=== PATIENT | male | born 1960 | race Caucasian/White ===

== ENCOUNTER 2020-07-23 07:33 | Emergency (ER) | payer BC, SELFPAY ==
--- NOTE | ~2020-07-23 | CT_ITS ---
EXAMINATION: CT cervical spine wo con DATE: 07/23/2020 08:31 INDICATION: Nontraumatic neck pain TECHNIQUE: Computed tomography (CT) of the cervical spine was performed without intravenous contrast. Automated exposure control and iterative reconstruction technique were employed. The dose-length pro duct was 200.80 mGy-cm. COMPARISON: None FINDINGS: Lower cervical levocurvature. Sagittal alignment is normal. Vertebral body heights are normal. No fra cture. There is osseous fusion across the right C2-C3 facet joint. Severe disc height loss with scler otic Modic type III degenerative endplate changes at C4-C5 through C6-C7. Moderate disc height loss a t C3-C4 and mild disc height loss at C2-C3. Small amount of atherosclerotic desiccation at the right carotid bulb. Dystrophic calcification is at the bilateral palatine tonsils. Mild emphysema at the ap ices of the lungs. The following disc levels are specifically discussed: C2-C3: The disc does not extend beyond the endplate margin. There is mild left and minimal right unco vertebral joint osteoarthritis. There is mild left facet joint osteoarthritis. The right facet joint is fused. There is no neural foraminal stenosis. There is no central canal stenosis. C3-C4: Disc is mildly bulging. There is mild to moderate left and severe right uncovertebral joint os teoarthritis. There is mild bilateral facet joint osteoarthritis. There is mild to moderate right and minimal left neural foraminal stenosis. There is mild central canal stenosis. C4-C5: Dysuria disc osteophyte complex. There is moderate left and severe right uncovertebral joint o steoarthritis. There is mild left and moderate right facet joint osteoarthritis. There is moderate ri ght and mild to moderate left neural foraminal stenosis. There is mild to moderate central canal sten osis. C5-C6: Posterior disc osteophyte complex. There is severe bilateral uncovertebral joint osteoarthriti s. There is mild left and moderate right facet joint osteoarthritis. There is moderate bilateral neur al foraminal stenosis. There is mild to moderate central canal stenosis. C6-C7: Posterior disc osteophyte complex. There is severe bilateral uncovertebral joint osteoarthriti s. There is mild left and moderate right facet joint osteoarthritis. There is mild to moderate bilate ral neural foraminal stenosis. There is mild central canal stenosis. C7-T1: Disc is bulging. There is no uncovertebral joint osteoarthritis. There is altered left and sev ere right facet joint osteoarthritis. There is mild right neural foraminal stenosis. There is mild ce ntral canal stenosis. IMPRESSION: 1. Severe cervical spondylosis. No acute osseous abnormality. 2. Mild emphysema. Reviewed, dictated and finalized at location A.
[2020-07-23 07:37] VITALS: BP 115/77; PULSE 116; RESP 20; TEMP 36.6; O2SAT 97
--- NOTE | 2020-07-23 07:59 | ED.NECK ---
HPI - Neck Pain/Injury General Chief Complaint: Neck Pain/Injury Stated Complaint: Neck pain since Friday Time Seen by Provider: 07/23/20 07:48 Source: patient Mode of arrival: ambulatory Limitations: no limitations History of Present Illness HPI Narrative: Patient is a 49-year-old male complaining of right sided neck pain, 9 out of 10, dull aching, nonradiating, worse with movement and palpation started approximately 3 days ago. Patient states that he was working in his shed moving and lifting things when he felt some pain Friday. Patient denies any headache, dizziness, weakness, numbness, incontinence or fever. Related Data Allergies Allergy/AdvReac Type Severity Reaction Status Date / Time No Known Allergies Allergy Mild Verified 07/23/20 07:38 Review of Systems Review of Systems: All systems reviewed & are unremarkable except as noted in HPI and below Constitutional: Constitutional: Denies body ache(s), Denies chills, Denies excessive sweating, Denies fatigue, Denies fever(s), Denies headache(s), Denies lethargy, Denies malaise, Denies weakness and Denies weight loss Eyes: Eyes: Denies blurry vision, Denies change in vision and Denies loss of vision ENT: Denies dizziness, Denies ear discharge, Denies headache(s), Denies lip swelling, Denies epistaxis, Denies nasal congestion, Denies throat swelling and Denies tongue swelling Cardiovascular: Cardiovascular: Denies chest pain, Denies chest pain at rest, Denies chest pain with activity, Denies diaphoresis, Denies rapid heart rate, Denies edema, Denies irregular heart rhythm, Denies lightheadedness, Denies palpitations, Denies dyspnea and Denies dyspnea on exertion Respiratory: Respiratory: Denies chest congestion, Denies cough, Denies hemoptysis, Denies dyspnea and Denies dyspnea on exertion Gastrointestinal: Gastrointestinal: Denies abdominal pain, Denies melena, Denies hematochezia, Denies diarrhea, Denies nausea, Denies vomiting and Denies hematemesis Musculoskeletal: Musculoskeletal: Denies abnormal gait, Denies deformity, Denies joint swelling, Denies limited range of motion, Denies neck pain and Denies numbness Neurologic: Denies Abnormal speech present, Denies abnormal gait, Denies confusion, Denies dizziness, Denies headache(s), Denies focal weakness, Denies loss of vision, Denies numbness, Denies Other visual disturbances, Denies Sensory deficit (Neuro) and Denies weakness Psychiatric: Psychiatric: Denies confusion, Denies depression, Denies auditory hallucinations, Denies homicidal ideation and Denies suicidal ideation Endocrine: Endocrine: Denies cold intolerance, Denies excessive sweating, Denies fatigue, Denies heat intolerance and Denies palpitations Hematologic/Lymphatic: Hematologic/Lymphatic: Denies easy bleeding and Denies easy bruising Allergic/Immunologic: Allergic/Immunologic: Denies lip swelling, Denies throat swelling and Denies tongue swelling Exam Const: General: cooperative, healthy appearing, comfortable, no acute distress, well developed, alert and awake; No confusion Orientation/consciousness: oriented to person, oriented to place, oriented to time, patient oriented x3 and No confusion Limitations: no limitations HENMT: Head: normal to inspection, normocephalic and atraumatic Ears: hearing grossly normal bilaterally, TM normal on the right and TM normal on the left General nose exam: Normal external nose present, Normal nares present and No nasal discharge present Face and sinus: normal facial exam Mouth: Yes Normal oral and palatal mucosa present, Yes lip normal, Yes tongue normal and Yes oropharynx normal Throat: posterior oropharynx normal, tonsils normal and uvula midline Eyes: General: appearance normal, both eyes and all related structures Pupils: Equal, round and reactive pupils present EOM: EOMs intact bilaterally Neck: Neck: normal visual inspection, no lymphadenopathy, no meningeal signs and no lymphadenopathy noted Carotids: normal sheets
[2020-07-23] MEDS: KETOROLAC (*BKC) 60 MG/2 ML VIAL 30 MG IM (08:10)
[2020-07-23] MEDS: HYDROcodone/acetaminophen (*CRX) 5-325 MG TABLET 1 TAB PO (08:10)
[2020-07-23] MEDS: diazePAM INJ (*CRX) 10 MG/2 ML SYRINGE 5 MG IM (08:19)
[2020-07-23] MEDS: predniSONE 20 MG TABLET 60 MG (08:21)
== END 2020-07-23 11:11 | disposition home or self-care (01) ==
PROVIDERS: Emergency Provider Emergency Medicine; PCP Physician Assistant
DX: S16.1XXA Strain of muscle, fascia and tendon at neck level, initial encounter (principal); X50.9XXA Other and unspecified overexertion or strenuous movements or postures, initial encounter
CPT/HCPCS: 72125; 96372; 99284; A9270; J1885; J3360; J7512

== ENCOUNTER 2020-07-25 12:04 | Observation (INO) | payer BC, SELFPAY ==
[2020-07-25] VITALS (10 sets, daily range): BP systolic 104–136; BP diastolic 78–91; PULSE 52–83; RESP 14–18; TEMP 36.2–36.8; O2SAT 97–100
--- NOTE | ~2020-07-25 | CT_ITS ---
EXAMINATION: CT brain wo con DATE: 07/25/2020 14:02 INDICATION: Slurred speech. Right-sided headache. TECHNIQUE: Computed tomography (CT) of the head was performed without intravenous contrast. The mA wa s adjusted according to patient size. Iterative reconstruction technique was employed. The dose-lengt h product was 605.33 mGy-cm. COMPARISON: None FINDINGS: There is no intracranial hemorrhage, acute infarction, or abnormal intracranial mass lesion . The ventricles are normal in size. The orbits are normal. There is mild mucosal thickening in the e thmoid sinuses. The mastoid air cells are normal. IMPRESSION: 1. Normal brain. Reviewed, dictated and finalized at location A. IMPRESSION: 1. Normal brain.
--- NOTE | ~2020-07-25 | CT_ITS ---
EXAMINATION: CTA brain carotid DATE: 07/25/2020 17:29 INDICATION: Dysarthria. TECHNIQUE: Computed tomographic angiography (CTA) of the head was performed with 100 mL Omnipaque-350 intravenous contrast. CTA of the neck was performed with intravenous contrast. Automated exposure co ntrol and iterative reconstruction technique were employed. The dose-length product was 1112.48 mGy-c m. Maximum intensity projection and volume rendered 3D-reconstructions were created by the [employer] st on a separate workstation. COMPARISON: Head CT 07/25/2020 FINDINGS: HEAD CTA: There is no intracranial hemorrhage, acute infarction, or abnormal intracranial mass lesion . The ventricles are normal in size. There is mild mucosal thickening in the paranasal sinuses. The o rbits are normal. The mastoid air cells are normal. Left vertebral artery is dominant. There is no si gnificant stenosis of basilar artery or the posterior cerebral arteries. There is no significant sten osis of the intracranial internal carotid arteries or anterior or middle cerebral arteries. Left A1 a nterior cerebral artery segment is small, a normal variant. There is a 3 mm saccular aneurysm of ante rior communicating artery. Right posterior communicating artery is normal. A left posterior communica ting artery is not identified. NECK CTA: There is mild emphysema. There are no pathologically enlarged lymph nodes. There is no sign ificant stenosis of the vertebral arteries. There is plaque in proximal right internal carotid artery . There is an intimal flap in proximal right internal carotid artery. There is 0% stenosis of the pro ximal right internal carotid artery relative to normal distal artery lumen diameter (NASCET criteria) . There is 0% stenosis of the proximal left internal carotid artery relative to normal distal artery lumen diameter. There is severe cervical spondylosis. IMPRESSION: 1. 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 2. Intimal flap in proximal right internal carotid artery. 3. 0% stenosis of the proximal right internal carotid artery relative to normal distal artery lumen d iameter (NASCET criteria). 4. 0% stenosis of the proximal left internal carotid artery relative to normal distal artery lumen di ameter. Reviewed, dictated and finalized at location A. IMPRESSION: 1. 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 2. Intimal flap in proximal right internal carotid artery. 3. 0% stenosis of the proximal right internal carotid artery relative to normal distal artery lumen diameter (NASCET criteria). 4. 0% stenosis of the proximal left internal carotid artery relative to normal distal artery lumen diameter.
--- NOTE | ~2020-07-25 | MR_ITS ---
EXAMINATION: MR brain/brain stem wo/w con DATE: 07/26/2020 10:05 INDICATION: Speech deficit. Right-sided headache. TECHNIQUE: Magnetic resonance imaging (MRI) of the brain and brainstem was performed without and with 10 mL MultiHance intravenous contrast. Sequences included sagittal and axial T1-weighted FSE, axial diffusion-weighted FS EPI, axial T2*-weighted GRE, axial T2-weighted FLAIR Propeller, and axial T2-we ighted Propeller. Postcontrast sequences included axial and coronal T1-weighted FSE. Apparent diffusi on coefficient (ADC) maps were created. COMPARISON: Head CT 07/25/2020 FINDINGS: There are scattered areas of nonspecific increased T2-weighted signal intensity in the cere bral white matter, which is within normal limits for the patient's age. There is no intracranial hemo rrhage, acute infarction, or abnormal intracranial mass lesion. The ventricles are normal in size. Th e paranasal sinuses are clear. The orbits are normal. The mastoid air cells are normal. IMPRESSION: 1. Normal aging brain. Reviewed, dictated and finalized at location A. IMPRESSION: 1. Normal aging brain.
--- NOTE | 2020-07-25 13:39 | ECG_ITS ---
Measurements Intervals [place] Rate: 60 P: 64 IL: 147 QRS: -33 QRSD: 106 T: 50 QT: 374 QTc: 374 Interpretive Statements SINUS RHYTHM LEFT AXIS DEVIATION INCOMPLETE RIGHT BUNDLE BRANCH BLOCK ST ELEVATION IN ANT/INF LEADS, PROBABLY EARLY REPOLARIZATION BORDERLINE ECG Electronically Signed On 07-25-2020 14:00:23 CDT by Raza Carney D.O.
[2020-07-25 13:58] LABS: Glucose Point of Care 161 (65-105)
[2020-07-25 13:59] LABS: Basophils Absolute Auto 0.1 K/mm3 (0.0-0.1); Eosinophils Absolute Auto 0.2 K/mm3 (0-0.3); Hematocrit 40.8 % (42.0-52.0); Hemoglobin 14.2 g/dL (14.0-18.0); Immature Granulocyte Absolute 0.01 K/mm3 (0.00-0.031); Immature Granulocyte Percent A 0.2 % (0-0.5); Lymphocytes Absolute Auto 1.49 K/mm3 (0.9-3.2); Lymphocytes Percent Auto 25.2 % (18.3-44.2); Mean Corpuscular HGB Conc 34.8 g/dl (32-36); Mean Corpuscular Hemoglobin 30.9 pg (26-34); Mean Corpuscular Volume 88.9 fl (80-100); Mean Platelet Volume 8.5 fl (7.4-10.4); Monocytes Absolute Auto 0.6 K/mm3 (0.1-0.6); Monocytes Percent Auto 10.5 % (2.6-8.5); Neutrophils Absolute Auto 3.6 K/mm3 (1.3-6.7); Neutrophils Percent Auto 60.1 % (45.5-73.1); Platelet Count Result 273 k/mm3 (150-375); Red Blood Count 4.59 M/mm3 (4.6-6.20); Red Cell Distribution Width 11.9 % (11.5-14.5); White Blood Count 5.9 K/mm3 (4.5-10.0)
[2020-07-25 14:11] LABS: Anion Gap 7 mmol/L (8-16); Blood Urea Nitrogen 27 mg/dL (9-20); Calcium 9.1 mg/dL (8.4-10.2); Carbon Dioxide 26 mmol/L (22-30); Chloride 103 mmol/L (98-107); Estimated CRCL calculation 70 ml/min; Estimated Glomerular Filt Rate > 60; Glucose 162 mg/dL (75-110); Potassium 4.2 mmol/L (3.4-5.0); Sodium 136 mmol/L (137-145)
--- NOTE | 2020-07-25 14:14 | ED.NEUROSD ---
HPI - Neuro Symptoms/Deficit General Chief Complaint: Neck Pain/Injury <Sherry Velasco PA-C - Last Filed: 07/25/20 16:49> Stated Complaint: worsening neck pain after stopping pain meds <ZE Maloney Last Filed: 07/25/20 16:49> Time Seen by Provider: 07/25/20 13:15 <ZE Maloney Last Filed: 07/25/20 16:49> Source: patient <ZE Maloney Last Filed: 07/25/20 16:49> Mode of arrival: ambulatory <ZE Maloney Last Filed: 07/25/20 16:49> Limitations: no limitations <ZE Maloney Last Filed: 07/25/20 16:49> History of Present Illness HPI Narrative: This is a 59 year old male that presents to the ER for difficulty speaking x 2 days. Reports he was seen in the ED here recently for neck pain. Reports he was prescribed pain medication and a muscle relaxer. Reports he started to have difficulty speaking/slurred speech 2 days ago. Also reports trouble eating. He was told by his primary to stop his pain medication to see if this helped. He has continued to have trouble speaking which prompted him to be seen. He also is starting to have worsening neck pain. Also reports he has been getting headaches over the last couple of months. Denies fever, vision changes, vomiting, or other weakness or numbness. <ZE Maloney Last Filed: 07/25/20 16:49> Related Data Home Medications: Home Medications Medication Instructions Recorded Confirmed cyclobenzaprine 10 mg PO Q8H 07/25/20 07/25/20 hydrocodone-acetaminophen 1 tablet PO Q6H PRN 07/25/20 07/25/20 insulin glargine [Lantus U-100 10 unit SUBCUT DAILY 07/25/20 07/25/20 Insulin] insulin lispro [Humalog U-100 See Rx Instructions .ROUTE .COMPLEX 07/25/20 07/25/20 Insulin] <ZE Maloney Last Filed: 07/25/20 16:49> Allergies/Adverse Reactions: Allergies Allergy/AdvReac Type Severity Reaction Status Date / Time No Known Allergies Allergy Mild Verified 07/25/20 18:06 <Sherry Velasco PA-C - Last Filed: 07/25/20 16:49> Review of Systems Review of Systems: Narrative: CONSTITUTIONAL: Denies fever EYES: Denies visual changes CARDIOVASCULAR: Denies chest pain RESPIRATORY: Denies dyspnea. GASTROINTESTINAL: Denies vomiting MUSCULOSKELETAL: Reports joint pain, and myalgia. NEUROLOGIC: Reports headache. Denies numbness, or weakness. <Sherry Velasco PA-C - Last Filed: 07/25/20 16:49> All systems reviewed & are unremarkable except as noted in HPI and below <Sherry Velasco PA-C - Last Filed: 07/25/20 16:49> [facility] Past Medical History Medical History: Medical History (Updated 07/25/20 @ 23:28 by Milagro Estrada NP) Cervical spondylosis History of diabetes mellitus Osteoarthritis <Sherry Velasco PA-C - Last Filed: 07/25/20 16:49> Surgical History Surgical History: Surgical History (Updated 07/25/20 @ 23:28 by Milagro Estrada NP) No pertinent past surgical history <Sherry Velasco PA-C - Last Filed: 07/25/20 16:49> Family History Family History: Family History Sibling Diabetes mellitus Father Cancer Mother Brain aneurysm <Sherry Velasco PA-C - Last Filed: 07/25/20 16:49> Social History Social History: Social History (Updated 07/25/20 @ 23:33 by Milagro Estrada NP) Social History: The patient is not currently working. History children. 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 He is a full code. He isn't use any alcohol or illicit drugs. Occasionally uses marijuana Smoking status: Never smoker Alcohol intake: never Substance use: current Substance use type: marijuana Last use: 07/25/2020 Gender identity (if verbalized by the patient): Male Spiritual care concerns: No <Sherry Velasco PA-C - Last Filed: 07/25/20 16:49>
[2020-07-25 14:19] LABS: INR 0.9; Partial Thromboplastin Time 25.8 SECONDS (22.3-36.8)
[2020-07-25 14:23] LABS: Troponin I < 0.012 ng/mL (0.000-0.034)
[2020-07-25] MEDS: ASPIRIN 81 MG CHEWABLE TABLET 324 MG PO (14:34)
[2020-07-25] MEDS: METOCLOPRAMIDE HCL INJ 10 MG/2 ML VIAL IV PUSH (16:43)
[2020-07-25] MEDS: SODIUM CHLORIDE 0.9% IV 1,000 ML 999 ML IV CONT (16:43)
[2020-07-25] MEDS: diphenhydrAMINE HCl INJ 50 MG/ML VIAL 25 MG IV PUSH (16:43)
--- NOTE | 2020-07-25 16:57 | WPDNEURCNPN ---
Assessment and Plan Assessment and plan (1) Dysarthria: Code(s): R47.1 - Dysarthria and anarthria Status: Acute Additional Plan question brainstem stroke needs MRI of the brain and CTA of the head and neck Consult date: 07/25/20 Time Seen: 17:00 HPI: Ronnie Wesley is a 59 year old male admitted to the hospital for the complaints of difficulties in speech of 48 hours duration. He was seen in the emergency room recently for the complaints of neck pain when he was prescribed the pain medication and muscle relaxer he started to have difficulties in speech along with the slurring of 48 hours duration in addition to trouble in eating he was told by his primary physician to stop his pain medication to see if that helps he continued to have the troubling speaking which prompted him to come to the emergency room he also complained of worsening neck pain and also give the history of headaches over the last couple of months though he gave no history of any visual difficulties nausea vomiting or weakness or numbness of 1 side or other side at the time of the visit to the emergency room he was taking cyclobenzaprine along with gabapentin hydrocodone and insult evaluation in the emergency room included the CT scan of the brain which was normalh cervical spine CT scan was consistent with severe cervical spondylosis with mild emphysema routine CBC was normal BUN 27 and glucose 162 Review of Systems Review of Systems: All systems reviewed & are unremarkable except as noted in HPI and below PMFSH Past Medical History Medical History (Updated 07/25/20 @ 16:43 by Sherry Velasco PA-C) History of diabetes mellitus Social History Social History (Updated 07/25/20 @ 14:19 by Sherry Velasco PA-C) Substance use: current Substance use type: marijuana Meds Home Medications and Allergies Home Medications Medication Instructions Recorded Confirmed Type methylprednisolone [Medrol (Cristopher)] See Rx Instructions .ROUTE 07/23/20 Rx .COMPLEX #21 each cyclobenzaprine mg 07/25/20 History gabapentin 07/25/20 History hydrocodone-acetaminophen 07/25/20 History insulin glargine [Lantus U-100 SUBCUT 07/25/20 History Insulin] insulin lispro [Humalog U-100 07/25/20 History Insulin] Allergies Allergy/AdvReac Type Severity Reaction Status Date / Time No Known Allergies Allergy Mild Verified 07/23/20 07:38 Vital Signs Vital Signs - 24 hr 07/25/20 12:45 07/25/20 14:36 07/25/20 15:02 Temperature 36.2 C L 36.7 C 36.7 C Pulse Rate 79 70 Respiratory Rate 18 14 Blood Pressure 132/80 132/81 Pulse Oximetry 99 97 07/25/20 15:05 07/25/20 16:03 07/25/20 16:44 Temperature 36.6 C 36.4 C L 36.7 C Pulse Rate 56 L 58 L 57 L Respiratory Rate 14 16 17 Blood Pressure 126/79 113/86 123/91 H Pulse Oximetry 99 100 100 Exam Narrative: Exam Narrative: examination revealed him to be awake alert cooperative in no obvious acute distress head normocephalic with no cranial bruit in her nose throat examination normal neck supple with no cervical bruit no thyromegaly no lymphadenopathy heart regular with no murmur lungs clear to auscultation abdomen is soft with no organomegaly neurological examination revealed him to be awake alert oriented x3 with pupils round regular feels the vision full extraocular was full face symmetrical tongue tongue deviated to the right side reflexes symmetrical plantars downgoing Results Labs CBC & Chem 7: 07/25/20 13:53 07/25/20 13:53 Labs: Short CBC 07/25/20 Range/Units 13:53 WBC 5.9 (4.5-10.0) K/mm3 Hgb 14.2 (14.0-18.0) g/dL Hct 40.8 L (42.0-52.0) % Plt Count 273 (150-375) k/mm3 BMP 07/25/20 13:53 Sodium 136 L Potassium 4.2 Chloride 103 Carbon Dioxide 26 BUN 27 H Creatinine 0.80 Glucose 162 H Calcium 9.1 Cardiac Enzymes 07/25/20 Range/Units 13:53 Troponin I < 0.012 (0.000-0.034) ng/mL
--- NOTE | 2020-07-25 18:04 | ADMGEN ---
This patient, Ronnie Wesley, was admitted to Medical Room 251-01. Patient/family oriented to hospital policies and general routines including ID bracelet, bed and alarms, visiting hours, pain management, procedures, bathroom and other care routines, personal items, smoking policy, room service/diet, and visiting hours. Information on how to activate the Rapid Response Team has been discussed. Patient/Family are encouraged to report perceived risks to care and to ask questions if they do not understand what they are told or what they should do.
[2020-07-25] MEDS: DEXTROSE 50% 25 GM/50 ML SYRINGE IV PUSH (21:45)
[2020-07-25 22:25] LABS: Glucose Point of Care 122 (65-105)
[2020-07-25 22:25] LABS: Glucose Point of Care 66 (65-105)
--- NOTE | 2020-07-25 23:19 | PM.IMHP ---
H&P: HPI History of Present Illness Date/Time: 07/25/20 23:19 Chief complaint: r/o CVA Narrative: Ronnie Wesley is a 59 year old male who has been having migraines and neck pain. The patient has been on Flexeril and pain medication [place]. Patient stated he has not had any pain medication for about 48 hours. He started to have some slurred speech 2 days ago he thought maybe it was due to his pain medication. Patient has severe arthritis to his hands and feet. Patient has new nausea vomiting no diarrhea. No fever chills. Patient stated he was trying hot and cold packs on his neck and that seemed to help at 1st but now no longer working. Expect the patient had been on a Medrol Dosepak at 1 time as well. Patient has diabetes type 2 knees insulin dependent. Patient was having difficulty eating and talking neurology was consulted. The patient did see the neurologist here in the hospital today. 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 Intimal flap proximal right internal carotid artery. 0% stenosis of the right left internal carotid. Patient was given IV Tylenol, aspirin, Reglan, Benadryl, in some IV fluids. The patient continued to have some slurred speech but was able to eat dinner okay tonight. He is moving all extremities and no facial droop. Patient was admitted observation medical-surgical in date of service of 07/25/2020 Review of Systems Review of Systems: All systems reviewed & are unremarkable except as noted in HPI and below Constitutional: Constitutional: Reports as per HPI and Reports no additional constitutional complaints Eyes: Eyes: Reports as per HPI and Reports no additional eye complaints ENT: Reports system reviewed and no additional complaints, except as documented and Reports Normal hearing present Cardiovascular: Cardiovascular: Reports no additional cardiovascular complaints Respiratory: Respiratory: Reports no additional respiratory complaints and Reports no additional respiratory complaints Gastrointestinal: Gastrointestinal: Reports as per HPI and Reports no additional gastrointestinal complaints Musculoskeletal: Musculoskeletal: Reports no additional musculoskeletal complaints Integumentary/Breasts: Skin/Breast: Reports system reviewed and no additional complaints, except as docu and Reports as per HPI Neurologic: Reports system reviewed and no additional complaints, except as documented, Reports as per HPI and Reports Normal hearing present Psychiatric: Psychiatric: Reports no additional psychiatric complaints and Reports as per HPI Endocrine: Endocrine: Reports no additional endocrine complaints Hematologic/Lymphatic: Hematologic/Lymphatic: Reports no additional hematologic/lymphatic complaints Allergic/Immunologic: Allergic/Immunologic: Reports no additional allergic/immunologic complaints PMFSH Past Medical History Medical History (Updated 07/25/20 @ 23:28 by Milagro Estrada NP) Cervical spondylosis History of diabetes mellitus Osteoarthritis Surgical History Surgical History (Updated 07/25/20 @ 23:28 by Milagro Estrada NP) No pertinent past surgical history Family History Family History Sibling Diabetes mellitus Father Cancer Mother Brain aneurysm Social History Social History (Updated 07/25/20 @ 23:33 by Milagro Estrada NP) Social History: The patient is not currently working. History children. 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 He is a full code. He isn't use any alcohol or illicit drugs. Occasionally uses marijuana Smoking status: Never smoker Alcohol intake: never Substance use: current Substance use type: marijuana Last use: 07/25/2020 Gender identity (if verbalized by the patient): Male Spiritual care concerns: No Meds Home Medications
[2020-07-26] VITALS (7 sets, daily range): BP systolic 120–138; BP diastolic 76–82; PULSE 46–82; RESP 16–18; TEMP 36.7; O2SAT 97–99
--- NOTE | 2020-07-26 | ECHO_ITS ---
Patient Info Name: Ronnie Wesley Age: 59 years : 1960 Gender: Male Ht: 63 in Wt: 130 lbs BSA: 1.63 m2 HR: 70 bpm BP: 138 / 82 mmHg Heart Rhythm: Sinus Rhythm Technical Quality: Good Exam Date: 07/26/2020 11:06 AM Exam Location: [facility] Pulmonary Patient Status: Inpatient Admit Date: 07/25/2020 Staff Ordering Physician: Milagro Estrada NP Panel Beater: Ronnie Barbosa RDCS Attending Provider: Lupe Knight PA-C Referring Physician: Natalie GOMEZ; Exam Type: CA echo doppler w bubble study Study Info Indications 436.0 - CVA Complete two-dimensional, color flow and Doppler transthoracic echocardiogram is performed with agitated saline. Strain analysis performed. Contrast/Agitated Saline Contrast/Ag. Saline: Agitated Saline Amount: 18.00 ml Administered By: Alexandre Brooks RN Existing IV Access: Yes History/Risk Factors Slurred speech; HTN. Summary 1. Normal left ventricular size and thickness. Left ventricular function is at the lower end of normal with an ejection fraction of about 50%. No focal wall motion abnormalities. No evidence of diastolic dysfunction. 2. No significant valve disease. 3. Dilated aortic root of 4.2 cm. Dilated sinuses of Valsalva, particularly the non coronary cusp, 4.4 cm. 4. No evidence of intracardiac shunting during normal respiration or Valsalva by bubble study. 5. Normal sinus rhythm. Left Ventricle Left ventricular chamber dimension is normal. Left ventricular systolic function is mildly reduced, estimated at 50-55%. There is no increased left ventricular wall thickness. Left ventricular septal wall motion is normal. The left ventricular diastolic function is normal. Global longitudinal strain is mildly elevated at 16 %. Right Ventricle Right ventricular chamber dimension is normal. Right ventricular systolic function is normal. Left Atria Left atrial chamber dimension is normal. Right Atria Right atrial chamber dimension is normal. Aortic Valve The aortic valve is trileaflet. There is no aortic valve sclerosis. There is no aortic valve stenosis. There is no aortic valve regurgitation. Pulmonic Valve The pulmonic valve is normal. There is no pulmonic valve stenosis. There is no pulmonic regurgitation. Mitral Valve The mitral valve has normal leaflets. There is no mitral valve stenosis. There is trace mitral valve regurgitation. Tricuspid Valve The tricuspid valve leaflets are normal. There is no significant tricuspid valve stenosis. There is trace tricuspid valve regurgitation. No pulmonary hypertension, estimated pulmonary arterial systolic pressure is Empty. Pericardium/Pleural The pericardium appears normal. There is no pericardial effusion. Inferior Vena Cava Normal inferior vena cava with >50% collapse upon inspiration consistent with Empty right atrial pressure, 5 mmHg. Aorta The aortic root size at the sinus of Valsalva is mildly dilated. The prox ascending aorta size is mildly dilated. Left Ventricular Outflow Tract Name Value Normal LVOT 2D LVOT Diameter 2.3 cm LVOT Doppler
[2020-07-26] MEDS: MENTHOL 10% / METHYL SALICYLATE 15% 57 GM TUBE 1 APPLIC TOPICAL (02:07)
[2020-07-26 02:33] LABS: Glucose Point of Care 321 (65-105)
[2020-07-26 06:08] LABS: Basophils Percent Auto 0.6 % (0.2-1.2); Eosinophils Absolute Auto 0.2 K/mm3 (0-0.3); Eosinophils Percent Auto 4.7 % (0-4.4); Hematocrit 39.5 % (42.0-52.0); Hemoglobin 13.5 g/dL (14.0-18.0); Immature Granulocyte Absolute 0.01 K/mm3 (0.00-0.031); Immature Granulocyte Percent A 0.2 % (0-0.5); Lymphocytes Percent Auto 25.9 % (18.3-44.2); Mean Corpuscular HGB Conc 34.2 g/dl (32-36); Mean Corpuscular Hemoglobin 29.9 pg (26-34); Mean Corpuscular Volume 87.6 fl (80-100); Mean Platelet Volume 8.6 fl (7.4-10.4); Monocytes Absolute Auto 0.4 K/mm3 (0.1-0.6); Monocytes Percent Auto 9.5 % (2.6-8.5); Neutrophils Absolute Auto 2.7 K/mm3 (1.3-6.7); Neutrophils Percent Auto 59.1 % (45.5-73.1); Platelet Count Result 269 k/mm3 (150-375); Red Blood Count 4.51 M/mm3 (4.6-6.20); Red Cell Distribution Width 11.6 % (11.5-14.5); White Blood Count 4.6 K/mm3 (4.5-10.0)
[2020-07-26 06:21] LABS: Alanine Aminotransferase 13 U/L (4-50); Albumin Level 3.2 g/dL (3.5-5.1); Alkaline Phosphatase 89 U/L (38-126); Anion Gap 4 mmol/L (8-16); Aspartate Amino Transferase 25 U/L (17-59); Bilirubin,Total 0.4 mg/dL (0.2-1.3); Blood Urea Nitrogen 22 mg/dL (9-20); Calcium 8.7 mg/dL (8.4-10.2); Carbon Dioxide 26 mmol/L (22-30); Chloride 104 mmol/L (98-107); Estimated CRCL calculation 70 ml/min; Estimated Glomerular Filt Rate > 60; Glucose 299 mg/dL (75-110); Hemoglobin A1C 7.2 % (<5.7); Potassium 4.6 mmol/L (3.4-5.0); Sodium 134 mmol/L (137-145)
[2020-07-26 07:38] LABS: Glucose Point of Care 282 (65-105)
[2020-07-26 07:54] LABS: Glucose Point of Care 302 (65-105)
[2020-07-26] MEDS: INSULIN ASPART (*BKC) 100 UNITS/ML SUB-Q ×2 (08:11→11:38)
[2020-07-26] MEDS: ASPIRIN 81 MG ENTERIC TABLET PO (08:11)
[2020-07-26] MEDS: INSULIN GLARGINE (*BKC) 100 UNITS/ML 10 UNITS SUB-Q (08:13)
[2020-07-26] MEDS: ACETAMINOPHEN 325 MG TABLET 650 MG PO (08:17)
[2020-07-26 11:33] LABS: Glucose Point of Care 230 (65-105)
--- NOTE | 2020-07-26 15:28 | PC.NURSE ---
On 07/26/20, the student, Gold Powers, provided care and completed [facility] documentation on this patient. I have reviewed the student's documentation and agree with the findings.
--- NOTE | 2020-07-26 16:10 | PM.DS ---
DS: Admitting Diagnosis Admitting Diagnosis Admitting Diagnosis: r/o CVA DS: Discharge Diagnosis Discharge Diagnosis (1) Dysarthria: Code(s): R47.1 - Dysarthria and anarthria Status: Acute Assessment and Plan: Patient complained of slurred speech which was concerning for stroke vs TIA. Head CT showed normal brain. 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 Brain MRI showed normal aging brain. Echo showed EF 50% with no significant valve disease and no evidence of intracardiac shunt. These symptoms could have been related to TIA. He was evaluated by speech therapy and was recommended that he continue with outpatient ST. He was started on daily baby aspirin per neurology recommendations. I spoke with his PCP via phone regarding these symptoms and he will see her the day following discharge. He will follow up with neurology in 6 weeks. (2) Cervical spondylosis: Code(s): M47.812 - Spondylosis without myelopathy or radiculopathy, cervical region Status: Chronic Assessment and Plan: He had been complaining of neck pain for several days and had been evaluated at [facility] 2 days prior to admission and an outside ER several days prior to that. Cervical spine CT showed severe cervical spondylosis. He had recently been started on cyclobenzaprine and given a short course of norco and medrol dose-pack. I spoke with his PCP regarding these findings as well. He will follow up in 1 day. We discussed possible referral to neurosurgery given severe nature and PCP informed that she would manage this if referral was warranted. He would likely benefit from PT. (3) Migraine: Code(s): G43.909 - Migraine, unspecified, not intractable, without status migrainosus Status: Acute Assessment and Plan: Resolved with analgesics (4) Diabetes mellitus: Code(s): E11.9 - Type 2 diabetes mellitus without complications Status: Acute Assessment and Plan: Last A1c is unknown. Blood sugars monitored closely during his stay and were slightly elevated in the mid 200s. We discussed careful glucose monitoring and encouraged him to check his sugars three times per day. DS: Summary Hospital Course Reason for hospitalization: Neck pain, dysarthria Hospital Course: Date of admission: 07/25/2020 Date of discharge: 07/26/2020 Ronnie Wesley is a 59-year-old female with a history of diabetes mellitus and cervical spondylosis who presented to the emergency department on 07/25/2020 with complaints of slurred speech for 48 hours along with no trouble eating. He also complained of neck pain that has been going on for several days. At presentation, vital signs stable, sodium 134, additional electrolytes stable, glucose 299, troponin <0.012, head CT showed normal brain, and EKG showed NSR. He was admitted to the hospitalist service for further evaluation and management and he was seen in consultation by neurology. Please see above for further details. He was evaluated by speech therapy and will continue as an outpatient. The patient had an appointment scheduled with his PCP for 07/27/20 and was eager to be discharged to attend that appointment. I spoke with his PCP via phone who agreed with plan. I also spoke with my supervising physician regarding this case who agreed. He was stable and neurologically intact. He felt comfortable to return home. We discussed worrisome signs and symptoms for which to return and he was educated on his medications. He will follow up with neurology in 6 weeks. He was discharged in hemodynamically stable condition on 07/26/2020. Status at Discharge Functional status at discharge: independent ambulation Overall status at discharge: patient is progressing back to baseline Time Spent with Patient Time attestation: Total time spent providing and/or coordinating d
[2020-07-26 16:43] LABS: Glucose Point of Care 242 (65-105)
--- NOTE | 2020-07-26 17:04 | PCSTNOTE ---
Please refer to the Bedside Swallow Evaluation in the EMR.
== END 2020-07-26 17:45 | disposition home or self-care (01) ==
LOC: ANHED 16:43 → ANH2MED 16:48
PROVIDERS: Nurse Practitioner; Physician Assistant; Admitting Provider Internal Medicine; Emergency Provider Emergency Medicine; PCP Physician Assistant; Visit Provider Family Medicine
DX: R47.81 Slurred speech (principal); G43.909 Migraine, unspecified, not intractable, without status migrainosus; M19.049 Primary osteoarthritis, unspecified hand; M47.812 Spondylosis without myelopathy or radiculopathy, cervical region; M19.079 Primary osteoarthritis, unspecified ankle and foot; E11.9 Type 2 diabetes mellitus without complications; Z79.4 Long term (current) use of insulin
CPT/HCPCS: 36415; 70450; 70496; 70498; 70553; 80048; 80053; 82728; 82948; 83036; 83735; 84443; 84484; 85025; 85610; 85730; 92523; 92610; 93005; 93306; 96361; 96374; 96375; 99285; A9270; A9577; G0378; G0379; J0131; J1200; J1815; J2765; J7030; Q9967

== ENCOUNTER 2020-09-13 07:30 | Outpatient (RCR) | payer BC, SELFPAY ==
--- NOTE | 2020-08-14 08:26 | PTOPEVAL ---
PHYSICAL THERAPY EVALUATION AND PLAN OF CARE Thank you for referring Ronnie Wesley to [facility].? The patient is scheduled to be seen for therapy?1-2x/week for 4 weeks with consideration for patient's schedule. Please review, sign, date and return this plan of care HUEY. I agree with and certify that the following plan of care is medically necessary. Referring Physician Date Attending Provider: Kathleen Miramontes, PA Evaluation Outpatient Past Medical History Neurological History Hx Migraine Yes Musculoskeletal History Hx Arthritis Yes: hands Hx Other Musculoskeletal Disorders Yes: severe cervial spondylosis Endocrine History Hx Diabetes Yes: uncontrolled Diagnosis severe spondylosis cervical Onset 07/23/2020 Subjective Information Ronnie is here today for Query Text:As Reported By Patient/ history of cervical Family spondylosis. The pain is chronic, but did experience an increased amount of right sided neck pain. He went to the ER and was given pain medication - no imagin taken. Pain still there the next day so he went to [place] ED who did a CT and was told he has severe arthritis of the neck. The next day he went back to the ED due to new onset slurred speech. He was evaluated by the Speech therapist while at the hospital who identified difficulty getting food out of the mouth. Prior to all of the hospital visits, he was getting alot of headaches/migraines - 3-4x/wk. The pain medication seems to be keeping the headaches managed. As for the right sided neck pain, he feels ok during the day with medicaiton, but in the morning before he takes the pain medication if he reaches or strains his neck there is a lot of pain. Self Report Pain Assessment Bilateral Spine, Cervical Reported Pain Level 5 Pain Description Aching,Spasms,Tightness Pain Frequency Chronic,Continuous Lowest P
--- NOTE | 2020-08-14 14:10 | STOPEVAL ---
SPEECH THERAPY EVALUATION AND DISCHARGE: Thank you for referring Ronnie Wesley to [facility].? Speech and swallow evaluations have been completed; No further ST is warranted as outlined below. Pt was provided with a HEP with which he verbalized and demonstrated understanding. I agree with and certify with the following ST evaluation and discharge. Referring Physician Date Attending Provider: Kathleen Miramontes, PA *ST Outpatient Evaluation/Discharge: Start: 08/14/20 08:30 Freq: Status: Active Protocol: Document 08/14/20 08:45 BECHERERT (Rec: 08/14/20 10:43 BECHERERT [email or web address]) Therapy Assessment Status Assessment Status Assessment Status Evaluation Outpatient Past Medical History Past Medical History Source of Past Medical History Patient Neurological History Hx Migraine Yes Hx Transient Ischemic Attacks (TIA) Yes Cardiovascular History Hx Cardiac Disorders No Significant History Respiratory History Hx Respiratory Disorders No Significant History Gastrointestinal History Hx Gastrointestinal Disorders No Significant History Genitourinary History Hx Genitourinary Disorders No Significant History Musculoskeletal History Hx Arthritis Yes: hands Hx Other Musculoskeletal Disorders Yes: severe cervial spondylosis Hematological History Hx Hematological Disorders No Significant History Endocrine History Hx Diabetes Yes: uncontrolled HEENT History Hx HEENT Disorders No Significant History Integumentary History Hx Skin Disorders No Significant History Reproductive History Hx Reproductive Disorders No Significant History Psychosocial History Hx Psychiatric Disorders No Significant History Pain History History of Any Previous or Ongoing No Significant History Instance of Pain Anesthesia History Hx Anesthesia Reactions No Significant History Evaluation Information Problem Diagnosis dysarthria Onset 07-25-2020 Cause TIA Additional Evaluation Detail Pt stated that he was recently jailed because 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 Subjective Information Upon beginning the Query Text:As Reported By Patient/ evaluation, the pt appeared Family tired and was even asked if he was taking a nap while waiting (in waiting room). He stated he was trying to nap. However, as the evaluation progressed, the pt became more
--- NOTE | 2020-09-13 08:11 | PTOPEVAL ---
PHYSICAL THERAPY DISCHARGE NOTE Thank you for referring Ronnie Wesley to [facility].? Please review, sign, date and return this plan of care HUEY. I agree with and certify that the following plan of care is medically necessary. Referring Physician Date Attending Provider: Kathleen Miramontes, PA Discharge Diagnosis dysarthria Onset 07-25-2020 Cause TIA Subjective Information Reports that his neck is Query Text:As Reported By Patient/ feeling better. States that he Family has not had a headache in about 1.5 weeks. Pain Assessment Timing of Pain Assessment Timing of Pain Assessment Assessment Self Report Self Report Pain Level 0 Pain Score Pain Score 0: Self Report Cervical and Lumbar ROM Cervical ROM Cervical Flexion (0-60) 45 Query Text:Active in Degrees Cervical Extension (0-70) 50 Query Text:Active in Degrees Cervical Rotation Right (0-90) 60 Query Text:Active in Degrees Cervical Rotation Left (0-90) 60 Query Text:Active in Degrees Upper Extremity Range of Motion General Upper Extremity Range of Motion Gross Upper Extremity Range of Motion grossly WFL: Comments bilateral flexion: 155deg bilateral abduction: 155deg IR behind back: L = T12, R = L1 Upper Extremity Muscle Strength Testing General Upper Extremity Strength Gross Upper Extremity Strength Comments right: grossly 4+/5 left: grossly 5/5 Muscle Length Testing Muscle Length Testing Scalene Group Muscle Length (R) Moderate Tightness,(L) Query Text: Moderate Tightness Latissmus Dorsi Muscle Length (R) Mild Tightness,(L) Mild Tightness Upper Trapezius Muscle Length (R) Moderate Tightness,(L) Moderate Tightness Sternocleidomastoid Muscle Length (R) Mild Tightness,(L) Mild Tightness Posture Posture Sitting Position Head/C-Spine Posture C-Spine Flattened Thoracic Spine Posture Neutral Shoulder Posture Neutral PT Clinical Summary Ronnie is a 59 yo male presenting to outpatient physical therapy with diagnosis of severe cervical spondylosis/arthritis. Ronnie demonstrates a significant improvement in cervical ROM to be WFL of rotation. He also demonstrates a significant increase in shoulder mobility
== END 2020-09-13 11:28 | disposition home or self-care (01) ==
LOC: ANHPT 07:30
PROVIDERS: PCP Physician Assistant; Visit Provider Physician Assistant
DX: M47.812 Spondylosis without myelopathy or radiculopathy, cervical region (principal); R47.1 Dysarthria and anarthria
CPT/HCPCS: 92522; 92610; 97035; 97110; 97140; 97161

== ENCOUNTER 2021-04-17 16:04 | Outpatient (CLI) | payer BC, SELFPAY ==
--- NOTE | ~2021-04-17 | MR_ITS ---
EXAMINATION: MR cervical spine wo con EXAM DATE: 04/17/2021 17:16 INDICATION: Spondylosis without myelopathy or radiculopathy. Cervical region. TECHNIQUE: Multi-sequential, multiplanar MR images of the cervical spine were obtained without contra st. Axial T2, axial T2 MERGE sequence. Sagittal T1, T2, T2 fat saturation images also obtained. Th ere is no prior study for comparison. FINDINGS: There is moderate disc disease C4-C7, mild to moderate at C3-4. There is 2-3 mm retrolisth esis C5 on C6 and anterolisthesis C7 on T1. The spinal cord signal intensity and intrinsic morphology is normal. Cervicomedullary junction is normal in appearance. There are no suspicious marrow signal abnormalities. Paraspinal soft tissue is unremarkable. Level by level evaluation: C2-C3: Disc does not extend beyond the endplate margin. Uncovertebral joint arthropathy: Mild right. Facet joint arthropathy: Fused right, mild left. Neural foraminal stenosis: No stenosis. Central canal stenosis: No stenosis. C3-C4: There is a mild diffuse disc bulge asymmetric to the right Uncovertebral joint arthropathy: Moderate right, mild left. Facet joint arthropathy: Moderate left, mild right. Neural foraminal stenosis: Mild to moderate right, mild left. Central canal stenosis: Mild. C4-C5: There is a mild diffuse disc bulge. Uncovertebral joint arthropathy: Moderate to severe right, moderate left. Facet joint arthropathy: Mild to moderate bilateral. Neural foraminal stenosis: Severe right, moderate left. Central canal stenosis: Mild. C5-C6: There is a mild diffuse disc bulge. Uncovertebral joint arthropathy: Severe right, moderate to severe left. Facet joint arthropathy: Moderate bilateral. Neural foraminal stenosis: Moderate to severe bilateral, right greater than left. Central canal stenosis: Mild. C6-C7: There is a mild diffuse disc bulge. Uncovertebral joint arthropathy: Moderate to severe bilateral. Facet joint arthropathy: Mild to moderate left, moderate right. Neural foraminal stenosis: Moderate bilateral. Central canal stenosis: Mild. C7-T1: There is a mild diffuse disc bulge. Uncovertebral joint arthropathy: None. Facet joint arthropathy: Severe right, mild to moderate left. Neural foraminal stenosis: Mild right. Central canal stenosis: No stenosis. IMPRESSION: Advanced cervical arthropathy causing significant multilevel neural foraminal stenosis. Reviewed, dictated and finalized at location A.
== END 2021-04-17 16:05 | disposition home or self-care (01) ==
PROVIDERS: PCP Physician Assistant; Visit Provider Physician Assistant
DX: M47.812 Spondylosis without myelopathy or radiculopathy, cervical region (principal)
CPT/HCPCS: 72141

== ENCOUNTER 2022-02-19 21:19 | Emergency (ER) | payer MEDICARE, MEDICAID, SELFPAY ==
[2022-02-19 21:26] VITALS: BP 146/85; PULSE 72; RESP 22; TEMP 36.6; O2SAT 98
--- NOTE | 2022-02-19 21:41 | ED.NAVMDI ---
HPI - Nausea/Vomiting/Diarrhea General Chief complaint: Nausea/Vomiting/Diarrhea Stated complaint: headache, nv Time Seen by Provider: 02/19/22 21:24 History of Present Illness HPI Narrative: Patient is a 61-year-old male diabetes here for evaluation of nausea and vomiting today. Patient reports about 8 episodes of vomiting nonbloody, nonbilious emesis after every p.o. trial today. He attempted two leftover Zofran without much relief. Reports pain in epigastrium with dry heaving, but no pain at rest. Additionally reports chills, but no fevers. He last had a [employer] cheese burger last night, and was feeling normal yesterday. Denies any abdominal pain, diarrhea, constipation. Denies sick contacts. Related Data Home Medications Medication Instructions Recorded Confirmed cyclobenzaprine 10 mg tablet 10 mg PO Q8H 07/25/20 04/24/21 hydrocodone 5 mg-acetaminophen 325 1 tablet PO Q6H PRN Pain 07/25/20 04/24/21 mg tablet insulin glargine 100 unit/mL 10 unit subcut DAILY 07/25/20 04/24/21 subcutaneous solution (Lantus U-100 Insulin) insulin lispro 100 unit/mL See Rx Instructions .Route .COMPLEX 07/25/20 04/24/21 subcutaneous solution (Humalog U-100 Insulin) Allergies Allergy/AdvReac Type Severity Reaction Status Date / Time No Known Allergies Allergy Mild Verified 02/19/22 21:29 Review of Systems Review of Systems: Gen: Reports chills, denies fevers Eyes: Denies eye pain or visual change ENT: Denies congestion Respiratory: Denies shortness of breath or cough CV: Denies chest pain or palpitations GI: Reports nausea and vomiting. : denies burning, urgency, frequency or hematuria Musculoskeletal: Denies back pain or muscle pain Neuro: Denies numbness, tingling, weakness or focal weakness Skin: Denies rash Except as documented, all other systems reviewed and negative [facility] Past Medical History Medical History Cervical spondylosis History of diabetes mellitus Osteoarthritis Surgical History Surgical History No pertinent past surgical history Family History Family History Sibling Diabetes mellitus Father Cancer Mother Brain aneurysm Social History Social History Social History: The patient is not currently working. History children. 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 He does not have a durable power litigation attorney associate and he is . He is a full code. He isn't use any alcohol or illicit drugs. Occasionally uses marijuana Smoking status: Never smoker Alcohol intake: never Substance use: current Substance use type: marijuana Last use: 07/25/2020 Gender identity (if verbalized by the patient): Male Spiritual care concerns: No Exam Narrative: APPEARANCE: Uncomfortable appearing. Thin. Head: normocephalic and atraumatic. EYES: PERRLA/EOMI, conjunctivae clear NOSE: No nasal drainage EARS: External ear normal in appearance THROAT: Oropharynx is clear. Mucous membranes are moist. NECK: Supple. No adenopathy, no masses. RESPIRATORY: Airway patent, respirations nonlabored. Clear to auscultation bilaterally, no rales, rhonchi, wheezing. CARDIOVASCULAR: Regular rate and rhythm without murmurs, rubs, or gallops. ABDOMINAL: Normoactive bowel sounds. Soft, nontender, nondistended. No rebound tenderness or guarding. MUSCULOSKELETAL: Extremities are warm and well-perfused. Moves all extremities well. No edema. NEURO: Normal speech. No focal neurologic deficits. SKIN: Skin is warm and dry. No rashes. PSYCHIATRIC: Normal affect/mood. Course Vital Signs Vital signs: Vital Signs Temperature 97.9 F 02/19/22 21:26 Pulse Rate 72 02/19/22 21:26 Respiratory Rate 22 H 02/19/22 21:26 Blood Pressure 146/85 H
[2022-02-19 21:46] LABS: Basophils Absolute Auto 0.1 K/mm3 (0.0-0.1); Basophils Percent Auto 0.8 % (0.2-1.2); Eosinophils Absolute Auto 0.1 K/mm3 (0-0.3); Eosinophils Percent Auto 1.3 % (0-4.4); Hematocrit 43.6 % (42.0-52.0); Hemoglobin 14.8 g/dL (14.0-18.0); Immature Granulocyte Absolute 0.01 K/mm3 (0.00-0.031); Immature Granulocyte Percent A 0.2 % (0-0.5); Lymphocytes Absolute Auto 1.48 K/mm3 (0.9-3.2); Lymphocytes Percent Auto 23.8 % (18.3-44.2); Mean Corpuscular HGB Conc 33.9 g/dl (32-36); Mean Corpuscular Hemoglobin 29.6 pg (26-34); Mean Corpuscular Volume 87.2 fl (80-100); Mean Platelet Volume 8.4 fl (7.4-10.4); Monocytes Absolute Auto 0.4 K/mm3 (0.1-0.6); Monocytes Percent Auto 6.8 % (2.6-8.5); Neutrophils Absolute Auto 4.2 K/mm3 (1.3-6.7); Neutrophils Percent Auto 67.1 % (45.5-73.1); Platelet Count Result 304 k/mm3 (150-375); Red Cell Distribution Width 12.3 % (11.5-14.5); White Blood Count 6.2 K/mm3 (4.5-10.0)
[2022-02-19 21:55] LABS: Alanine Aminotransferase 18 U/L (6-50); Albumin Level 4.1 g/dL (3.5-5.1); Alkaline Phosphatase 137 U/L (38-126); Anion Gap 8 mmol/L (8-16); Aspartate Amino Transferase 30 U/L (17-59); Bilirubin,Total 0.8 mg/dL (0.2-1.3); Blood Urea Nitrogen 17 mg/dL (9-20); Calcium 8.8 mg/dL (8.4-10.2); Carbon Dioxide 21 mmol/L (22-30); Chloride 103 mmol/L (98-107); Estimated CRCL calculation 74 ml/min; Estimated Glomerular Filt Rate > 60; Glucose 185 mg/dL (65-110); Lipase 108 U/L (23-300); Potassium 4.5 mmol/L (3.4-5.0); Sodium 132 mmol/L (137-145)
[2022-02-19 22:02] VITALS: BP 145/89; PULSE 79; RESP 24; O2SAT 96
[2022-02-19] MEDS: diphenhydrAMINE HCl INJ 50 MG/ML VIAL 25 MG IV PUSH (22:02)
[2022-02-19] MEDS: METOCLOPRAMIDE HCL INJ 10 MG/2 ML VIAL IV PUSH (22:02)
[2022-02-19] MEDS: SODIUM CHLORIDE 0.9% IV 1,000 ML 999 ML IV CONT (22:02)
[2022-02-19 23:05] VITALS: BP 141/90; PULSE 90; RESP 20; O2SAT 97
[2022-02-20 00:13] VITALS: BP 152/99; PULSE 98; RESP 20; O2SAT 99
== END 2022-02-20 00:14 | disposition home or self-care (01) ==
PROVIDERS: Physician Assistant; Emergency Provider Emergency Medicine; PCP Physician Assistant
DX: K52.9 Noninfective gastroenteritis and colitis, unspecified (principal); E11.9 Type 2 diabetes mellitus without complications; M19.90 Unspecified osteoarthritis, unspecified site; Z79.4 Long term (current) use of insulin
CPT/HCPCS: 36415; 80053; 83690; 85025; 96361; 96374; 96375; 99284; J1200; J2765; J7030

== ENCOUNTER 2022-07-02 01:21 | Emergency (ER) | payer MEDICARE, MEDICAID, SELFPAY ==
[2022-07-02 01:25] VITALS: BP 148/92; PULSE 117; RESP 22; TEMP 36.4; O2SAT 99
--- NOTE | 2022-07-02 02:05 | ED.GENADULT ---
HPI - General Adult General Chief complaint: Nausea/Vomiting/Diarrhea Stated complaint: vomiting since yesterday Time Seen by Provider: 07/02/22 01:46 History of Present Illness HPI narrative: 61-year-old male presenting the emergency department for evaluation of nausea vomiting and epigastric pain. Patient states symptoms started approximately 2 days ago with nausea and vomiting. Patient states he has subsequently developed some burning epigastric pain. Patient does admit to smoking THC daily. Patient has no prior history of cannabinoid hyperemesis syndrome. Patient has no prior surgical history. Related Data Home Medications Medication Instructions Recorded Confirmed cyclobenzaprine 10 mg tablet 10 mg PO Q8H 07/25/20 04/24/21 hydrocodone 5 mg-acetaminophen 325 1 tablet PO Q6H PRN Pain 07/25/20 04/24/21 mg tablet insulin glargine 100 unit/mL 10 unit subcut DAILY 07/25/20 04/24/21 subcutaneous solution (Lantus U-100 Insulin) insulin lispro 100 unit/mL See Rx Instructions .Route .COMPLEX 07/25/20 04/24/21 subcutaneous solution (Humalog U-100 Insulin) Allergies Allergy/AdvReac Type Severity Reaction Status Date / Time No Known Allergies Allergy Mild Verified 02/19/22 21:29 Review of Systems Review of Systems: CONSTITUTIONAL: Denies fever, chills, or sweats. EYES: Denies visual changes, redness, or discharge. ENT: Denies rhinorrhea, congestion, sore throat, or otalgia. CARDIOVASCULAR: Denies chest pain, palpitations, or edema. RESPIRATORY: Denies cough or dyspnea. GASTROINTESTINAL: See HPI GENITOURINARY: Denies dysuria or hematuria. SKIN: Denies rash or itching. MUSCULOSKELETAL: Denies back pain, joint pain, or myalgia. NEUROLOGIC: Denies headache, numbness, or weakness. PSYCHIATRIC: Denies anxiety or depression. [facility] Past Medical History Medical History Cervical spondylosis History of diabetes mellitus Osteoarthritis Surgical History Surgical History No pertinent past surgical history Family History Family History Sibling Diabetes mellitus Father Cancer Mother Brain aneurysm Social History Social History Social History: The patient is not currently working. History children. 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 He does not have a durable power commercial litigation attorney and he is . He is a full code. He isn't use any alcohol or illicit drugs. Occasionally uses marijuana Smoking status: Never smoker Alcohol intake: never Substance use: current Substance use type: marijuana Last use: 07/25/2020 Gender identity (if verbalized by the patient): Male Spiritual care concerns: No Exam Narrative: APPEARANCE: Well appearing, no pain, no distress, well-nourished. HEAD: normocephalic, atraumatic. EYES: PERRLA/EOMI, conjunctivae clear. NOSE: Normal no drainage NECK: Supple. No adenopathy, no masses. RESPIRATORY: Airway patent, respirations nonlabored. Clear to auscultation bilaterally, no rales, rhonchi, wheezing. CARDIOVASCULAR: Regular rate and rhythm without murmurs rubs or gallops. ABDOMINAL: Soft, mild epigastric tenderness to palpation. MUSCULOSKELETAL: Moves all extremities. Strength/ROM intact, No edema, No calf tenderness. NEURO: Alert. Cranial nerves II through XII intact. Grossly intact SKIN: Warm, dry. Normal Color Course Course Emergency Course: Patient did feel improved with treatment. Patient was after the results of his work-up. Patient was encouraged of close follow-up with his primary care physician. Patient was also advised to refrain from THC use and patient was very agreeable. Patient was provided Zofran for home and advised to follow a clear liquid diet for the next 1 to 3 days. All q
[2022-07-02] MEDS: SODIUM CHLORIDE 0.9% IV 1,000 ML 999 ML IV CONT ×2 (02:25→03:24)
[2022-07-02] MEDS: METOCLOPRAMIDE HCL INJ 10 MG/2 ML VIAL IV PUSH (02:27)
[2022-07-02] MEDS: PANTOPRAZOLE SODIUM IV 40 MG VIAL IV PUSH (02:27)
[2022-07-02 02:32] LABS: Basophils Percent Auto 0.3 % (0.2-1.2); Eosinophils Percent Auto 0.2 % (0-4.4); Hematocrit 41.9 % (42.0-52.0); Hemoglobin 14.3 g/dL (14.0-18.0); Immature Granulocyte Absolute 0.03 K/mm3 (0.00-0.031); Immature Granulocyte Percent A 0.3 % (0-0.5); Lymphocytes Absolute Auto 0.96 K/mm3 (0.9-3.2); Lymphocytes Percent Auto 10.5 % (18.3-44.2); Mean Corpuscular HGB Conc 34.1 g/dl (32-36); Mean Corpuscular Hemoglobin 30.2 pg (26-34); Mean Corpuscular Volume 88.6 fl (80-100); Mean Platelet Volume 8.6 fl (7.4-10.4); Monocytes Absolute Auto 0.4 K/mm3 (0.1-0.6); Monocytes Percent Auto 4.1 % (2.6-8.5); Neutrophils Absolute Auto 7.7 K/mm3 (1.3-6.7); Neutrophils Percent Auto 84.6 % (45.5-73.1); Platelet Count Result 267 k/mm3 (150-375); Red Blood Count 4.73 M/mm3 (4.6-6.20); Red Cell Distribution Width 12.2 % (11.5-14.5); White Blood Count 9.1 K/mm3 (4.5-10.0)
[2022-07-02 02:51] LABS: Alanine Aminotransferase 16 U/L (6-50); Albumin Level 4.2 g/dL (3.5-5.1); Alkaline Phosphatase 117 U/L (38-126); Anion Gap 16 mmol/L (8-16); Aspartate Amino Transferase 28 U/L (17-59); Bilirubin,Total 0.9 mg/dL (0.2-1.3); Blood Urea Nitrogen 18 mg/dL (9-20); Calcium 8.9 mg/dL (8.4-10.2); Carbon Dioxide 18 mmol/L (22-30); Chloride 99 mmol/L (98-107); Estimated CRCL calculation 58 ml/min; Estimated Glomerular Filt Rate > 60; Glucose 421 mg/dL (65-110); Lipase 91 U/L (23-300); Potassium 4.8 mmol/L (3.4-5.0); Sodium 133 mmol/L (137-145)
[2022-07-02 03:40] VITALS: BP 155/89; PULSE 109; RESP 18; O2SAT 100
--- NOTE | 2022-07-02 03:41 | PC.NURSE ---
Assumed care of pt at this time.
[2022-07-02] MEDS: ONDANSETRON INJ 4 MG/2 ML VIAL IV PUSH (04:14)
[2022-07-02 04:23] VITALS: BP 141/86; PULSE 111; RESP 18; O2SAT 98
== END 2022-07-02 04:24 | disposition home or self-care (01) ==
PROVIDERS: Emergency Provider Emergency Medicine; PCP Physician Assistant
DX: R10.13 Epigastric pain (principal); E11.9 Type 2 diabetes mellitus without complications; M47.812 Spondylosis without myelopathy or radiculopathy, cervical region; M19.90 Unspecified osteoarthritis, unspecified site; F12.90 Cannabis use, unspecified, uncomplicated; Z79.4 Long term (current) use of insulin; Z79.891 Long term (current) use of opiate analgesic; Z79.82 Long term (current) use of aspirin
CPT/HCPCS: 36415; 80053; 83690; 85025; 96361; 96374; 96375; 99284; C9113; J2405; J2765; J7030

== ENCOUNTER 2022-10-20 08:44 | Emergency (ER) | payer MEDICARE, MEDICAID, SELFPAY ==
--- NOTE | ~2022-10-20 | XR_ITS ---
EXAMINATION: XR hand RT min 3V DATE: 10/20/2022 10:30 INDICATION: Right hand pain and swelling. TECHNIQUE: 4 views of right hand were obtained. COMPARISON: None. FINDINGS: Bone alignment is normal. No fracture. There is degenerative cystic change in proximal yariel te and proximal triquetrum, consistent with ulnocarpal impaction syndrome. There is mild osteoarthrit is of first carpometacarpal joint and some of the metacarpophalangeal joints and interphalangeal join ts. There is moderate osteoarthritis of third metacarpophalangeal joint. There is severe osteoarthrit is of first interphalangeal joint and second and third distal interphalangeal joints and moderate ost eoarthritis of fourth and fifth distal interphalangeal joints. IMPRESSION: 1. Polyarticular osteoarthritis. Reviewed, dictated and finalized at location A. [employer]
[2022-10-20 09:06] VITALS: BP 150/94; PULSE 98; RESP 18; TEMP 36.7; O2SAT 98
--- NOTE | 2022-10-20 10:18 | ED.UPPEXIN ---
HPI - Extremity Injury (Upper) General Chief Complaint: Extremity Injury, Upper Stated Complaint: rt hand swelling Time Seen by Provider: 10/20/22 09:55 Source: patient and RN notes reviewed Mode of arrival: ambulatory Limitations: no limitations History of Present Illness HPI narrative: This is a 62-year-old male that presents emergency department for right hand pain ongoing over the last couple of days. No recent injuries or trauma. Patient has not taken anything for pain. Reports history of arthritis. Reports swelling to the area. Reports decreased ROM. Denies numbness. Related Data Home Medications Medication Instructions Recorded Confirmed cyclobenzaprine 10 mg tablet 10 mg PO Q8H 07/25/20 04/24/21 hydrocodone 5 mg-acetaminophen 325 1 tablet PO Q6H PRN Pain 07/25/20 04/24/21 mg tablet insulin glargine 100 unit/mL 10 unit subcut DAILY 07/25/20 04/24/21 subcutaneous solution (Lantus U-100 Insulin) insulin lispro 100 unit/mL See Rx Instructions .Route .COMPLEX 07/25/20 04/24/21 subcutaneous solution (Humalog U-100 Insulin) Allergies Allergy/AdvReac Type Severity Reaction Status Date / Time No Known Allergies Allergy Mild Verified 02/19/22 21:29 Review of Systems Review of Systems: CONSTITUTIONAL: Denies fever SKIN: Denies rash MUSCULOSKELETAL: Reports joint pain, and myalgia. NEUROLOGIC: Denies numbness, or weakness. All systems reviewed & are unremarkable except as noted in HPI and below PMFSH Past Medical History Medical History Cervical spondylosis History of diabetes mellitus Osteoarthritis Surgical History Surgical History No pertinent past surgical history Family History Family History Sibling Diabetes mellitus Father Cancer Mother Brain aneurysm Social History Social History Social History: The patient is not currently working. History children. 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 He does not have a durable power managing attorney and he is . He is a full code. He isn't use any alcohol or illicit drugs. Occasionally uses marijuana Smoking status: Never smoker Alcohol intake: never Substance use: current Substance use type: marijuana Last use: 07/25/2020 Gender identity (if verbalized by the patient): Male Spiritual care concerns: No Exam Narrative: GENERAL: Well-appearing, well-nourished, and in no acute distress. HEAD: Normocephalic, atraumatic. EYES: EOMI. EXTREMITIES: Normal range of motion. Right hand with mild to moderate edema, especially about the 3rd MCP joint. No erythema or warmth. Normal DP pulse. Normal sensation SKIN: Warm, dry, no rash. NEURO: No focal deficits. Alert and oriented x3. PSYCH: Normal mood and affect Course Course Emergency Course: Patient updated on workup and agrees with further plan of care Vital Signs Vital signs: Vital Signs Temperature 98.1 F 10/20/22 09:06 Pulse Rate 98 10/20/22 09:06 Respiratory Rate 18 10/20/22 09:06 Blood Pressure 150/94 H 10/20/22 09:06 Pulse Oximetry 98 10/20/22 09:06 Temperature 98.1 F 10/20/22 09:06 Pulse Rate 98 10/20/22 09:06 Respiratory Rate 18 10/20/22 09:06 Blood Pressure 150/94 H 10/20/22 09:06 Pulse Oximetry 98 10/20/22 09:06 MDM - Extremity Injury (Upper) MDM Narrative Medical decision making narrative: Patient presents to the ER for right hand pain and swelling ongoing over the last couple of days. He is afebrile and nontoxic-appearing. There is no erythema or warmth of the joint. CBC is without leukocytosis. Inflammatory markers are mildly elevated. Hand x-ray shows polyarticular osteoarthritis. Suspect flare of arthritis. Instructed on further care a
[2022-10-20 10:43] LABS: Basophils Percent Auto 0.3 % (0.2-1.2); Eosinophils Absolute Auto 0.2 K/mm3 (0-0.3); Eosinophils Percent Auto 2.4 % (0-4.4); Hematocrit 41.3 % (42.0-52.0); Hemoglobin 14.2 g/dL (14.0-18.0); Immature Granulocyte Absolute 0.02 K/mm3 (0.00-0.031); Immature Granulocyte Percent A 0.3 % (0-0.5); Mean Corpuscular HGB Conc 34.4 g/dl (32-36); Mean Corpuscular Hemoglobin 30.1 pg (26-34); Mean Corpuscular Volume 87.5 fl (80-100); Mean Platelet Volume 8.2 fl (7.4-10.4); Monocytes Absolute Auto 0.4 K/mm3 (0.1-0.6); Monocytes Percent Auto 6.6 % (2.6-8.5); Neutrophils Absolute Auto 4.3 K/mm3 (1.3-6.7); Neutrophils Percent Auto 69.4 % (45.5-73.1); Platelet Count Result 259 k/mm3 (150-375); Red Blood Count 4.72 M/mm3 (4.6-6.20); Red Cell Distribution Width 12.3 % (11.5-14.5); White Blood Count 6.2 K/mm3 (4.5-10.0)
[2022-10-20] MEDS: IBUPROFEN 600 MG TABLET PO (10:48)
[2022-10-20 10:58] LABS: Anion Gap 5 mmol/L (8-16); Blood Urea Nitrogen 13 mg/dL (9-20); CRP 2.3 mg/dL (<1.0); Calcium 8.6 mg/dL (8.4-10.2); Carbon Dioxide 29 mmol/L (22-30); Chloride 97 mmol/L (98-107); Estimated CRCL calculation 70 ml/min; Estimated Glomerular Filt Rate > 60; Glucose 164 mg/dL (65-110); Potassium 4.1 mmol/L (3.4-5.0); Sodium 131 mmol/L (137-145); Uric Acid 4.9 mg/dL (3.5-8.5)
[2022-10-20 11:27] LABS: Erythrocyte Sedimentation Rate 27 mm/hr (0-20)
[2022-10-20 13:39] VITALS: BP 123/86; PULSE 68; RESP 16; O2SAT 98
== END 2022-10-20 13:40 | disposition home or self-care (01) ==
PROVIDERS: Emergency Provider Physician Assistant; PCP Physician Assistant
DX: M19.041 Primary osteoarthritis, right hand (principal); M18.9 Osteoarthritis of first carpometacarpal joint, unspecified; E11.9 Type 2 diabetes mellitus without complications; Z79.4 Long term (current) use of insulin
CPT/HCPCS: 36415; 73130; 80048; 84550; 85025; 85652; 86140; 99283; A9270

== ENCOUNTER 2023-07-27 09:55 | Emergency (ER) | payer MEDICARE, MEDICAID, SELFPAY ==
[2023-07-27 09:56] VITALS: BP 114/75; PULSE 99; RESP 16; TEMP 36.6; O2SAT 99
[2023-07-27 10:26] LABS: Basophils Percent Auto 0.3 % (0.2-1.2); Hematocrit 46.2 % (42.0-52.0); Hemoglobin 15.6 g/dL (14.0-18.0); Immature Granulocyte Absolute 0.01 K/mm3 (0.00-0.031); Immature Granulocyte Percent A 0.1 % (0-0.5); Lymphocytes Absolute Auto 0.82 K/mm3 (0.9-3.2); Lymphocytes Percent Auto 10.9 % (18.3-44.2); Mean Corpuscular HGB Conc 33.8 g/dl (32-36); Mean Corpuscular Hemoglobin 29.8 pg (26-34); Mean Corpuscular Volume 88.3 fl (80-100); Mean Platelet Volume 8.5 fl (7.4-10.4); Monocytes Absolute Auto 0.7 K/mm3 (0.1-0.6); Monocytes Percent Auto 9.2 % (2.6-8.5); Neutrophils Percent Auto 79.5 % (45.5-73.1); Platelet Count Result 298 k/mm3 (150-375); Red Blood Count 5.23 M/mm3 (4.6-6.20); Red Cell Distribution Width 12.6 % (11.5-14.5); White Blood Count 7.5 K/mm3 (4.5-10.0)
[2023-07-27 10:41] LABS: Appearance Urine Cloudy (Clear); Bacteria Urine None Seen /hpf; Bilirubin Urine Negative (Negative); Blood Urine Negative (Negative); Color Urine Dark Yellow (Yellow); Glucose Urine UA 2+ mg/dL (Negative); Hyaline Casts Urine Present /lpf; Ketones Urine 1+ mg/dL (Negative); Leukocyte Esterase Ur Negative LEU/UL (Negative); Mucus Urine Present /lpf; Nitrate Urine Negative (Negative); Protein Urine 1+ mg/dL (Negative); RBC Urine 0-2 /hpf (0-2); Specific Grav Ur 1.029 (1.001-1.035); Squamous Epithelial Cell Urine None seen /hpf (Few); WBC Urine 0-5 /hpf; pH Urine 5.5 (5.0-9.0)
[2023-07-27 10:44] LABS: Alanine Aminotransferase 20 U/L (6-50); Albumin Level 4.4 g/dL (3.5-5.1); Alkaline Phosphatase 102 U/L (38-126); Anion Gap 9 mmol/L (8-16); Aspartate Amino Transferase 38 U/L (17-59); Bilirubin,Total 0.8 mg/dL (0.2-1.3); Blood Urea Nitrogen 29 mg/dL (9-20); Calcium 9.3 mg/dL (8.4-10.2); Carbon Dioxide 24 mmol/L (22-30); Chloride 100 mmol/L (98-107); Estimated CRCL calculation 54 ml/min; Estimated Glomerular Filt Rate > 60; Glucose 227 mg/dL (65-110); Lipase 69 U/L (23-300); Potassium 4.2 mmol/L (3.4-5.0); Sodium 133 mmol/L (137-145)
[2023-07-27 10:47] LABS: Add Urine Microscopic? YES
[2023-07-27] MEDS: SODIUM CHLORIDE 0.9% IV 2,000 ML 999 ML IV CONT (10:53)
[2023-07-27 11:22] LABS: Influenza A QL RT-PCR Negative (Negative); Influenza B QL RT-PCR Negative (Negative); SARS-CoV-2 RNA PCR Negative (Negative)
--- NOTE | 2023-07-27 12:26 | ED.NAVMDI ---
HPI - Nausea/Vomiting/Diarrhea General Chief complaint: Nausea/Vomiting/Diarrhea Stated complaint: DIARRHEA X3D Time Seen by Provider: 07/27/23 10:21 History of Present Illness HPI Narrative: This is a 62-year-old male, with history of diabetes who presents emergency department complaining of loose stools for the past 3 days. The patient states his symptoms began after eating a breakfast sandwich from [employer]. He denies any known sick contacts or recent travel outside of the country. He has no other complaints at this time. Related Data Home Medications Medication Instructions Recorded Confirmed cyclobenzaprine 10 mg tablet 10 mg PO Q8H 07/25/20 04/24/21 hydrocodone 5 mg-acetaminophen 325 1 tablet PO Q6H PRN Pain 07/25/20 04/24/21 mg tablet insulin glargine 100 unit/mL 10 unit subcut DAILY 07/25/20 04/24/21 subcutaneous solution (Lantus U-100 Insulin) insulin lispro 100 unit/mL See Rx Instructions .Route .COMPLEX 07/25/20 04/24/21 subcutaneous solution (Humalog U-100 Insulin) Allergies Allergy/AdvReac Type Severity Reaction Status Date / Time No Known Allergies Allergy Mild Verified 07/27/23 10:21 Review of Systems Review of Systems: CONSTITUTIONAL: Denies fever, chills, or sweats. CARDIOVASCULAR: Denies chest pain, palpitations, or edema. RESPIRATORY: Denies cough or dyspnea. GASTROINTESTINAL: Nonbloody diarrhea denies abdominal pain, nausea, vomiting GENITOURINARY: Denies dysuria or hematuria. SKIN: Denies rash or itching. MUSCULOSKELETAL: Denies back pain, joint pain, or myalgia. NEUROLOGIC: Denies headache, numbness, dizziness, or weakness. PSYCHIATRIC: Denies anxiety or depression. [facility] Past Medical History Medical History Cervical spondylosis History of diabetes mellitus Osteoarthritis Surgical History Surgical History No pertinent past surgical history Family History Family History Sibling Diabetes mellitus Father Cancer Mother Brain aneurysm Social History Social History Social History: The patient is not currently working. History children. 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 He does not have a durable power disability attorney and he is . He is a full code. He isn't use any alcohol or illicit drugs. Occasionally uses marijuana Smoking status: Never smoker Alcohol intake: never Substance use: current Substance use type: marijuana Last use: 07/25/2020 Gender identity (if verbalized by the patient): Male Spiritual care concerns: No Exam Narrative: GENERAL: Well-developed, well-nourished, and in no acute distress. HEAD: Normocephalic, atraumatic. EYES: PERRLA and EOMI. ENT: Nares clear, no rhinorrhea or epistaxis. Mucous membranes moist. Oropharynx without tonsillar hypertrophy exudate or other lesions. CHEST: Clear to auscultation. No respiratory distress. No wheezes rales or rhonchi HEART: Regular rate and rhythm. No murmur heard. Normal peripheral pulses. ABDOMEN: Soft, nontender, nondistended, normal active bowel sounds. EXTREMITIES: Normal range of motion. No edema. SKIN: Warm, dry, no rash. NEURO: Alert and oriented x3. Moving all 4 limbs purposefully. PSYCH: Normal mood and affect. Course Course Emergency Course: 12:25 - CBC unremarkable. Chemistries demonstrate mild hyponatremia with sodium of 133 but otherwise unremarkable. UA consistent with dehydration but is not concerning for UTI. The patient tested negative for COVID and influenza. On reevaluation, he feels improved after IV fluids. Will discharge with recommendation for oral hydration and fiber supplementation. The patient voiced understanding and is comfortable with plan. All questions answered
== END 2023-07-27 13:07 | disposition home or self-care (01) ==
PROVIDERS: Emergency Provider Preventive Medicine Aerospace Medicine; PCP Physician Assistant
DX: K52.9 Noninfective gastroenteritis and colitis, unspecified (principal); E11.9 Type 2 diabetes mellitus without complications; Z20.822 Contact with and (suspected) exposure to COVID-19
CPT/HCPCS: 36415; 80053; 81001; 83690; 85025; 87636; 96360; 99283; J7030